=== PATIENT | female | born 1980 | race Caucasian/White ===

== ENCOUNTER 2024-08-10 19:51 | Emergency (ER) | payer OTHER, MEDICARE, SELFPAY ==
[2024-08-10 19:57] VITALS: BP 160/96
[2024-08-10 20:24] LABS: % Basophils 0.3 % (0-2); % Eosinophils 0.9 % (0-6); % Immature Granulocytes 0.3 % (0-0.5); % Lymphocytes 21.7 % (20.5-51.1); % Monocytes 5.9 % (1.7-9.3); % Neutrophils 70.9 % (42.2-75.2); Absolute Eosinophils 0.1 10^3/uL (0-0.7); Absolute Lymphocytes 2.5 10^3/uL (1.2-3.4); Absolute Monocytes 0.7 10^3/uL (0.1-0.6); Absolute Neutrophils 8.2 10^3/uL (1.4-6.5); Hematocrit 41.6 % (37.0-47.0); Hemoglobin 13.7 g/dL (12.0-16.0); Mean Corp Hgb Conc. 32.9 g/dL (33.0-37.0); Mean Corpuscular Hgb 31.1 pg (27.0-31.0); Mean Corpuscular Volume 94.3 fL (81.0-99.0); Mean Platelet Volume 11.4 fL (7.4-10.4); Nucleated Red Blood Cells % 0 %; Platelet Count 237 10^3/uL (130-400); Red Blood Cell Count 4.41 10^6/uL (4.20-5.40); Red Cell Dist. Width 12.1 % (11.5-14.5); White Blood Cell Count 11.6 10^3/uL (4.8-10.8)
[2024-08-10 20:30] LABS: Glucose - Point of Care 271 mg/dl (70-99)
[2024-08-10 20:40] VITALS: BP 173/97
[2024-08-10 20:41] LABS: ALT (SGPT) 66 U/L (0-35); AST (SGOT) 82 U/L (14-36); Albumin 4.4 g/dl (3.5-5.0); Alkaline Phosphatase 90 U/L (38-126); Blood Urea Nitrogen 21 mg/dl (7-17); Calcium 9.3 mg/dl (8.4-10.2); Carbon Dioxide 31 mmol/L (22-30); Chloride 102 mmol/L (98-107); Glucose 260 mg/dl (70-99); Potassium 4.6 mmol/L (3.5-5.1); Sodium 139 mmol/L (135-145); Total Bilirubin 0.7 mg/dl (0.2-1.3); Total Protein 7.2 g/dl (6.3-8.2); eGFR > 60.00
[2024-08-10 20:52] LABS: HCG, Serum Qualitative Screen Negative
[2024-08-10 21:00] VITALS: BP 146/79
--- NOTE | 2024-08-10 21:43 | ED.GENMED ---
History of Present Illness
General
Chief Complaint: Blood Sugar Problem
Source: patient
Exam Limitations: none
Time Seen by Provider: 08/10/24 20:36
Nursing documentation reviewed up to this point in time: agreed with
History of Present Illness
History of Present Illness:
The patient is a 43-year-old female with a past medical history of insulin-dependent diabetes who reports 1 day of elevated blood sugars. Patient reports that when her blood sugar becomes elevated, she does not feel well. Patient complains of a
mild headache and fatigue. She reports this is how she usually feels when her blood sugars elevated. Patient reports that about 8 days ago, her mortgage underwriter lowered all of her diabetic medications because she had had an episode of hypoglycemia.
Patient reports that her blood sugar has been in the normal range until today when it became elevated. Patient denies cough, sore throat, vomiting, and fever. She denies rash. Patient denies chest pain and shortness of breath. She denies leg
pain and leg swelling.
Past History
Past History
ED Past Medical History: IDDM
ED Past Surgical History: Other
Social History
Tobacco: Non-smoker
Alcohol: Other
Drug: None
Living: with family
Employment: Other
Family History
Family History: Other
Review of Systems
Review of Systems
Allergies reviewed?: Yes
All Other Systems: ROS reviewed and negative except as documented in HPI and ROS
Constitutional: Reports fatigue
EENT: Reports no symptoms
Respiratory: Reports no symptoms
Cardiac: Reports no symptoms
ABD/GI: Reports nausea
: Reports no symptoms
Musculoskeletal: Reports no symptoms
Skin: Reports no symptoms
Neurological: Reports headache
Endocrine: Reports no symptoms
Hematologic/Lymphatic: Reports no symptoms
Psychiatric: Reports no symptoms
Phy Exam
Physical Exam
Physical Exam:
Physical Exam
General: no apparent distress, not acutely ill
Neck: supple. no meningeal signs. normal psoterior pharynx
Heart: s1/s2 regular rate and rhythm, no murmur. equal radial pulses.
Lungs: no acute respiratory distress. clear bilaterally
Abdomen: normal bowel sounds. not tender. no CVAT
Neuro: alert and oriented. no focal neurological deficits
Skin: no rash
Psychiatric: well kept. interactive and cooperative
Extremities: no edema. no calf tenderness. negative homans. good distal pulses
Course
Orders/Labs/Results
Orders:
Orders
08/10/24 20:02
Test Result ONCE
08/10/24 20:03
Accucheck Once [Bedside Glucose Monitoring-ONCE] As Directed
08/10/24 20:15
B-Hydroxybutyrate Urgent
Complete Blood Count/With Diff Urgent
Comprehensive Metabolic Panel Urgent
HCG, Serum Qualitative Screen Urgent
Influenza A+B Rapid Molecular Urgent
SHANTI Source: Nasal Swab
Specimen Description:
08/10/24 21:42
0.9% Sodium Chloride 1000 ml [Nss] 1,000 ml IV BOLUS
08/10/24 21:47
Ketorolac [Toradol] 15 mg IV NOW STA
08/10/24 21:58
Urinalysis Reflex To Culture Urgent
Date Specimen was Collected: 08/10/24
Time Specimen was Collected: 21:55
Urine Microscopic Reflex Cult Urgent
08/10/24 23:01
Bedside Glucose- Treatment ONCE
Abnormal Lab Results
08/10/24 08/10/24 08/10/24
20:15 20:29 21:58
WBC 11.6 H 10^3/uL
(4.8-10.8)
MCH 31.1 H pg
(27.0-31.0)
MCHC 32.9 L g/dL
(33.0-37.0)
MPV 11.4 H fL
(7.4-10.4)
Absolute Neuts (auto) 8.2 H 10^3/uL
(1.4-6.5)
Absolute Monos (auto) 0.7 H 10^3/uL
(0.1-0.6)
Carbon Dioxide 31 H mmol/L
(22-30)
BUN 21 H mg/dl
(7-17)
Glucose 260 H mg/dl
(70-99)
AST 82 H U/L
(14-36)
ALT 66 H U/L
(0-35)
Ur Occult Blood Reflex 1+ A
(Negative)
Urine Bacteria (Reflex) Few A
(Negative)
Urine Glucose 4+ A
(Negative)
Urine Albumin (Reflex) 1+ A
(Neg - Trace)
POC Glucose 271 H mg/dl
(70-99)
08/10/24 20:15
08/10/24 20:15
Vital Signs
Initial and Last Documented VS:
Initial Vital Signs
Temp Pulse Resp BP Pulse Ox
98.2 F 94 22 160/96 100
08/10/24 19:57 08/10/24 19:57 08/10/24 19:57 08/10/24 19:57 08/10/24 19:57
Last Documented Vital Signs
Temp Pulse Resp BP Pulse Ox
98.2 F 82 19 146/79 96
08/10/24 19:57 08/10/24 21:45 08/10/24 21:45 08/10/24 21:00 08/10/24 21:45
MDM/Problems Addressed
Differential Diagnosis Includes:
Diabetic ketoacidosis, diabetic hyperglycemia without ketoacidosis, UTI, pneumonia
MDM/Problems Addressed:
Patient presents with acutely elevated blood sugar, headache and nausea
Chronic conditions affecting care: DM
Acute Exacerbation and/or Progression of Chronic Illness:
Patient has acutely elevated blood sugar due to chronic diabetes
*Pulse Oximetry
Patient hypoxic: no
*EKG
Interpreted by ED Provider?: NA
*Early Childhood Aide Classroom Interpretation
Rate: normal
Interpretation: normal
Rhythm: sinus
*Critical Care Note
Total Time (30-74mins, 75-104mins- exclusive of procedures): Not Applicable
Update Note
Update Note:
12:00 am patient states she feels so much better. Blood sugar 90s. There is no sign of pneumonia on exam. There is no sign of UTI. It is unclear why patient's blood sugar was elevated today. It could be due to her mortgage underwriter recently
changing her medication or perhaps she is developing a viral illness.
ED Attending Note
-
Portions of this chart may have been created with voice recognition software.� Occasional wrong word or��sound alike� substitutions may have occurred due to the inherent limitations of voice recognition software.
Discharge Plan
Departure
Patient Disposition: Home (Routine Discharge)
Date of Disposition: 08/11/24
Time of Disposition: 00:05
Patient with high blood pressure during this ER visit?: Yes
Condition: Good
Covid-19: Not Applicable
Discharge Problem:
Hyperglycemia
Instructions: High blood sugar in adults - ED discharge instructions, BLOOD PRESSURE
Referrals:
Erick Haines MD [Family Provider] -
Activity Restrictions/Additional Instructions:
Please follow-up with your mortgage underwriter as soon as possible. Call the office on Monday.
Interventions
Interventions:
*Risk Screen - Suicide Last Done: 08/10/24 19:57
*Neglect/Abuse Screening Last Done: 08/10/24 19:57
Discharge Date and Time
Print Language: SALVADOREAN
[2024-08-10] MEDS: NSS 1000 IV (22:02)
[2024-08-10] MEDS: TORADOL 15 MG IV (22:02)
[2024-08-10 22:09] LABS: Urine Albumin 1+ (Neg - Trace); Urine Bilirubin Negative (Negative); Urine Character Clear (Clear); Urine Color Yellow; Urine Glucose 4+ (Negative); Urine Ketone Negative (Negative); Urine Leukocyte Negative (Negative); Urine Nitrite Negative (Negative); Urine Occult Blood 1+ (Negative); Urine Specific Gravity 1.015 (<1.030); Urine Urobilinogen Negative (Neg - 1+)
[2024-08-10 22:15] LABS: Urine Squamous Cell >30 /LPF (Few)
[2024-08-10 22:16] LABS: Urine Bacteria Few (Negative); Urine Red Blood Cell 0-2 /HPF (0-2); Urine White Cell 0-2 /HPF (0-5)
[2024-08-10 23:00] VITALS: BP 167/97
[2024-08-11] VITALS: BP 140/91
[2024-08-11 00:01] LABS: Glucose - Point of Care 94 mg/dl (70-99)
== END 2024-08-11 00:28 | disposition home or self-care (01) ==
LOC: EMR 19:51
PROVIDERS: Emergency Medicine; EMERGENCY PHYSICIAN Emergency Medicine; FAMILY PHYSICIAN Family Medicine
DX: E11.65 Type 2 diabetes mellitus with hyperglycemia (principal); Z79.4 Long term (current) use of insulin
CPT/HCPCS: 99283; 96374; 96361; 80053; 81003; 81015; 82010; 82962; 84703; 85025; 87502

== ENCOUNTER 2025-02-20 20:00 | Emergency (ER) | payer OTHER, MEDICARE, SELFPAY ==
[2025-02-20 20:05] VITALS: BP 179/87
[2025-02-20 20:21] LABS: Hematocrit 38.3 % (37.0-47.0); Hemoglobin 13.0 g/dL (12.0-16.0); Mean Corp Hgb Conc. 33.9 g/dL (33.0-37.0); Mean Corpuscular Volume 88.0 fL (81.0-99.0); Nucleated Red Blood Cells % 0 %; Platelet Count 229 10^3/uL (130-400); Red Cell Dist. Width 12.0 % (11.5-14.5)
[2025-02-20 20:33] LABS: HCG, Serum Qualitative Screen Negative
[2025-02-20 20:41] LABS: COVID-19 Antigen Negative (Negative)
[2025-02-20 20:42] LABS: ALT (SGPT) 22 U/L (0-35); AST (SGOT) 22 U/L (14-36); Albumin 4.8 g/dl (3.5-5.0); Alkaline Phosphatase 95 U/L (38-126); Blood Urea Nitrogen 11 mg/dl (7-17); Calcium 9.2 mg/dl (8.4-10.2); Carbon Dioxide 24 mmol/L (22-30); Chloride 99 mmol/L (98-107); Glucose 313 mg/dl (70-99); Potassium 4.2 mmol/L (3.5-5.1); Sodium 132 mmol/L (135-145); Total Protein 7.9 g/dl (6.3-8.2); eGFR > 60.00
[2025-02-20 22:05] VITALS: BMI 28.2
--- NOTE | 2025-02-20 22:05 | ED.GENMED ---
History of Present Illness
General
Chief Complaint: Cough
Source: patient
Exam Limitations: none
Time Seen by Provider: 02/20/25 21:54
Nursing documentation reviewed up to this point in time: agreed with
History of Present Illness
History of Present Illness:
44-year-old female with past medical history of type 1 diabetes, depression, retinopathy, presents to the ER today with concerns of persistent cough. Of note, the cough began a few days ago. However the illness started 2 weeks ago with initially
sinus symptoms. She was started on amoxicillin with minimal relief. She was then switched to Augmentin which did not seem to help and she feels like her cough got worse. She denies any history of asthma or COPD. She does not smoke. Patient also
notes mild chest discomfort after coughing and some episodes of posttussive emesis. She denies any abdominal pain. She denies any fever fevers or chills. 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 She
denies any episodes of loss of consciousness, any recent long distance travel. She is not coughing up blood. Occasionally she will cough up yellow sputum.
Past History
Past History
ED Past Medical History: IDDM
ED Past Surgical History: Other
Social History
Tobacco: Non-smoker
Alcohol: Other
Drug: None
Living: with family
Employment: Other
Family History
Family History: Other
Review of Systems
Review of Systems
All Other Systems: ROS reviewed and negative except as documented in HPI and ROS
Phy Exam
Physical Exam
Physical Exam:
General: Patient is well appearing and in no acute distress; non-toxic
Skin: Warm and dry, no rashes or lesions
Head: Normocephalic, atraumatic
Eyes: Sclera non-icteric. EOMs intact.
Cardiac: Tachycardia noted otherwise regular rhythm, no murmur
Peripheral Vascular: No lower extremity swelling or edema
Pulm: Normal respiratory effort, no wheezes, rales, rhonchi
Neuro: CN II-XII intact, no focal neurologic deficits.
Psychiatric: Appropriate mood and affect.
Course
Orders/Labs/Results
Orders:
Orders
02/20/25 20:08
Test Result ONCE
02/20/25 20:11
COVID-19 Antigen Urgent
Source: Nasal Swab
Influenza A+B Rapid Molecular Urgent
SHANTI Source: Nasal Swab
Specimen Description:
02/20/25 20:14
Complete Blood Count/With Diff Urgent
Comprehensive Metabolic Panel Urgent
HCG, Serum Qualitative Screen Urgent
02/20/25 22:13
Ipratropium/Albuterol Sulfate [Duoneb] 3 ml .ROUTE .STK-MED ONE
02/20/25 22:18
Ipratropium/Albuterol Sulfate [Duoneb] 3 ml INH R NOW ONE
02/20/25 22:20
0.9% Sodium Chloride 1000 ml [Nss] 1,000 ml IV BOLUS
Dexamethasone Sod Phosphate [Decadron] 10 mg IV NOW STA
CR Chest - 2 Views Urgent
Comment:
Reason For Exam: persistent cough
Abnormal Lab Results
02/20/25
20:14
WBC 15.4 H 10^3/uL
(4.8-10.8)
MPV 11.0 H fL
(7.4-10.4)
Abs Immat Gran (auto) 0.1 H 10^3/uL
(0-0.05)
Absolute Neuts (auto) 11.8 H 10^3/uL
(1.4-6.5)
Absolute Monos (auto) 1.0 H 10^3/uL
(0.1-0.6)
Neutrophils % 77.0 H %
(42.2-75.2)
Lymphocytes % 15.0 L %
(20.5-51.1)
Sodium 132 L mmol/L
(135-145)
Glucose 313 H mg/dl
(70-99)
02/20/25 20:14
02/20/25 20:14
Vital Signs
Initial and Last Documented VS:
Initial Vital Signs
Temp Pulse Resp BP Pulse Ox
98.8 F 112 25 179/87 99
02/20/25 20:05 02/20/25 20:05 02/20/25 20:05 02/20/25 20:05 02/20/25 20:05
Last Documented Vital Signs
Temp Pulse Resp BP Pulse Ox
98.8 F 93 22 140/85 94
02/20/25 20:05 02/21/25 00:15 02/21/25 00:15 02/21/25 00:00 02/21/25 00:15
MDM/Problems Addressed
Differential Diagnosis Includes:
Differentials include viral pneumonia or bacterial pneumonia, viral upper respiratory tract infection, acute bronchitis, sinusitis with postnasal drip, asthma exacerbation, GERD induced cough, COPD
MDM/Problems Addressed:
44-year-old female presents emergency department today with concerns of persistent cough. This illness originally started sinus-like symptoms and she took amoxicillin and then Augmentin without relief. The cough has been gone the past few days.
She has no fevers or chills. Generally does not feel short of breath. On physical exam she is well-appearing no acute distress. Mild tachycardia noted. Labs reviewed she does have a leukocytosis with elevated neutrophils but no evidence of left
shift. Mild hyponatremia noted on CMP and hyperglycemia. She tested negative for COVID and flu. She went for chest x-ray which showed no evidence of acute abnormality no evidence of pneumonia. Honestly suspect a viral bronchitis. Patient did
improve in the ER with DuoNeb. She also given IV fluids. Despite active diabetes and hyperglycemia earlier, I did want to give patient a dose of Decadron to help with her symptoms for these next few days. I did advise patient that she may require
stricter control of her sugars these next few days. Advise strict follow-up with PCP and possible pulmonary consultation as an outpatient for persistent cough. Nebulizer prescription and no medication sent to pharmacy. Patient stable for
discharge. Do not feel that additional antibiotic therapy would be helpful at this time. Discussed strict return precautions.
*Pulse Oximetry
SaO2: 99
Oxygen Mode of Delivery: Room air
Patient hypoxic: no
*Critical Care Note
Total Time (30-74mins, 75-104mins- exclusive of procedures): Not Applicable
ED Attending Note
-
Portions of this chart may have been created with voice recognition software.� Occasional wrong word or��sound alike� substitutions may have occurred due to the inherent limitations of voice recognition software.
Discharge Plan
Departure
Patient Disposition: Home (Routine Discharge)
Date of Disposition: 02/21/25
Time of Disposition: 00:12
Patient with high blood pressure during this ER visit?: Yes
Condition: Good
Discharge Problem:
Acute bronchitis
Instructions: Acute Bronchitis, Adult (DC), Cough, Adult (DC), BLOOD PRESSURE
Prescriptions:
New
(DME) nebulizer and compressor Device
See Rx Instructions .Route Qty: 1 0RF
Rx Instructions:
As directed
albuterol sulfate 2.5 mg /3 mL (0.083 %) solution for nebulization
2.5 mg inhalation Q4H PRN (Reason: shortness of breath or wheezing) Qty: 75 0RF
sodium chloride 0.9 % solution for nebulization
2.5 ml inhalation Q4H Qty: 90 0RF
Referrals:
Allie Haines DO [Active, Pulmonary Medicine] - Call in 1-3 days for appt
Erick Haines MD [Family Provider, Family Practice]
Activity Restrictions/Additional Instructions:
Albuterol solution for nebulization as well as saline solution for nebulizer has been sent to your pharmacy.
Please continue to monitor your symptoms. Please follow-up with your primary care provider in 1 week.
PLEASE RETURN TO THE ER SHOULD YOU DEVELOP RIGORS, FEVERS OR CHILLS, COUGHING UP OF BLOOD, DIZZINESS, LIGHTHEADEDNESS, FEELING SHORT OF BREATH, OR ANY OTHER SIGNS OR SYMPTOMS WORRISOME TO YOU.
Interventions
Interventions:
*Risk Screen - Suicide Last Done: 02/20/25 20:07
*General Assessment Last Done: 02/20/25 20:07
*Neglect/Abuse Screening Last Done: 02/20/25 20:07
*ED- Fall Risk Assessment Last Done: 02/20/25 22:05
*ED COVID-19 Vaccine History Last Done: 02/20/25 22:05
*Nursing Disposition Last Done: 02/21/25 00:31
ED- Pulmonary Assessment Last Done: 02/20/25 23:18
Discharge Date and Time
Discharge Date/Time: 02/21/25 00:37
Print Language: PERSIAN
[2025-02-20] MEDS: DUONEB 3 ML INH (22:18)
[2025-02-20] MEDS: DECADRON 10 MG IV (23:11)
[2025-02-20] MEDS: NSS 1000 IV (23:12)
[2025-02-20 23:15] VITALS: BP 146/85
[2025-02-21] VITALS: BP 140/85
== END 2025-02-21 00:37 | disposition home or self-care (01) ==
LOC: EMR 20:00
PROVIDERS: Emergency Medicine; EMERGENCY PHYSICIAN Emergency Medicine; FAMILY PHYSICIAN Family Medicine
DX: J20.9 Acute bronchitis, unspecified (principal); E10.65 Type 1 diabetes mellitus with hyperglycemia; R03.0 Elevated blood-pressure reading, without diagnosis of hypertension; E10.319 Type 1 diabetes mellitus with unspecified diabetic retinopathy without macular edema; E87.1 Hypo-osmolality and hyponatremia; Z79.4 Long term (current) use of insulin
CPT/HCPCS: 99284; 96374; 96361; 94640; 71046; 80053; 84703; 85025; 87502; 87811